=== PATIENT | female | born 1985 | race Caucasian/White ===

== ENCOUNTER 2016-11-26 14:55 | Emergency (ER) | payer MEDICAID ==
[~2016-11-26] VITALS: Ht 157.5 cm; Wt 53.6 kg
[2016-11-26] MEDS ORDERED: NORCO 325 MG-51 TA1 PO (16:51)
[2016-11-26 16:57] VITALS: BP 108/78
== END 2016-11-26 16:53 | disposition home or self-care (01) ==
LOC: ED 14:55
DX: S02.2XXA Fracture of nasal bones, initial encounter for closed fracture (principal); S00.83XA Contusion of other part of head, initial encounter; W50.0XXA Accidental hit or strike by another person, initial encounter; Y92.009 Unspecified place in unspecified non-institutional (private) residence as the place of occurrence of the external cause

== ENCOUNTER 2018-06-06 15:05 | Emergency (ER) | payer SELFPAY ==
[~2018-06-06] VITALS: Ht 157.5 cm; Wt 61.4 kg
[~2018-06-06 15:05] MED LIST: ALBUTEROL SULFAT3 M3 IH; CITALOPRAM HBR10 MG; GOOD NEIGHBOR200 M1 PO; IMITREX 25MG TA25 MG; IMITREX 25MG TA25 MG PO; NORCO 325 MG-51 TA1 PO; ZOFRAN ODT4 MG PO
[2018-06-06] MEDS ORDERED: ZITHROMAX 250M250 MG PO (16:48)
[2018-06-06 16:54] VITALS: BP 128/69
== END 2018-06-06 16:54 | disposition home or self-care (01) ==
LOC: ED 15:05
DX: J20.9 Acute bronchitis, unspecified (principal); Z88.2 Allergy status to sulfonamides; G43.909 Migraine, unspecified, not intractable, without status migrainosus; Z79.899 Other long term (current) drug therapy

== ENCOUNTER 2018-08-14 19:47 | Emergency (ER) | payer SELFPAY ==
[~2018-08-14] VITALS: Ht 157.5 cm; Wt 59.1 kg
[~2018-08-14 19:47] MED LIST changes: +ZITHROMAX 250M250 MG PO
[2018-08-14] MEDS ORDERED: PROAIR HFA0.09 MG/AC IH (20:27)
[2018-08-14 21:35] VITALS: BP 124/71
== END 2018-08-14 21:35 | disposition home or self-care (01) ==
LOC: ED 19:47
DX: G43.909 Migraine, unspecified, not intractable, without status migrainosus (principal); J45.909 Unspecified asthma, uncomplicated; F17.210 Nicotine dependence, cigarettes, uncomplicated; Z88.2 Allergy status to sulfonamides
CPT/HCPCS: J1200; J1885; J2550

== ENCOUNTER 2018-12-23 13:30 | Emergency (ER) | payer SELFPAY ==
[~2018-12-23] VITALS: Ht 157.5 cm; Wt 60.9 kg
[~2018-12-23 13:30] MED LIST changes: +ALBUTEROL2.5 MG/3 M IH; +PREDNISONE20 M1 PO; +PROAIR HFA0.09 MG/AC IH; +TOPAMAX25 MG PO; +ZOLOFT25 M1 PO
[2018-12-23] MEDS ORDERED: NEURONTIN300 M1 PO ×2 (15:35)
[2018-12-23] MEDS ORDERED: IMITREX 25MG TA25 MG PO (15:37)
[2018-12-23 17:30] VITALS: BP 105/62
== END 2018-12-23 17:24 | disposition home or self-care (01) ==
LOC: ED 13:30
DX: G43.909 Migraine, unspecified, not intractable, without status migrainosus (principal); F17.210 Nicotine dependence, cigarettes, uncomplicated; F12.90 Cannabis use, unspecified, uncomplicated; Z88.2 Allergy status to sulfonamides; Z87.01 Personal history of pneumonia (recurrent)
CPT/HCPCS: J1885; J2550

== ENCOUNTER 2019-07-23 19:37 | Emergency (ER) | payer MEDICAID ==
[~2019-07-23 19:37] MED LIST changes: +NEURONTIN300 M1 PO
[2019-07-23] MEDS ORDERED: NORCO 325 MG-51 TA1 PO (20:48)
[2019-07-23 21:08] VITALS: BP 122/70
== END 2019-07-23 21:08 | disposition home or self-care (01) ==
LOC: ED 19:37
DX: S06.0X0A Concussion without loss of consciousness, initial encounter (principal); S00.12XA Contusion of left eyelid and periocular area, initial encounter; F17.210 Nicotine dependence, cigarettes, uncomplicated; G43.909 Migraine, unspecified, not intractable, without status migrainosus; Y04.0XXA Assault by unarmed brawl or fight, initial encounter; Y92.009 Unspecified place in unspecified non-institutional (private) residence as the place of occurrence of the external cause

== ENCOUNTER 2019-08-25 21:52 | Emergency (ER) | payer MEDICAID ==
[~2019-08-25] VITALS: Ht 157.5 cm; Wt 63.6 kg
[2019-08-25] MEDS ORDERED: PROZAC20 M1 PO (22:04)
[2019-08-25] MEDS ORDERED: DESYREL50 MG PO (22:05)
[2019-08-25] MEDS ORDERED: XANAX0.5 M1 PO (22:06)
[2019-08-25] MEDS ORDERED: DEPO-PROVE150 MG/1 M IM (22:06)
[2019-08-25 23:08] VITALS: BP 119/53
== END 2019-08-25 23:08 | disposition home or self-care (01) ==
LOC: ED 21:52
DX: G43.909 Migraine, unspecified, not intractable, without status migrainosus (principal); F41.9 Anxiety disorder, unspecified; F32.9 Major depressive disorder, single episode, unspecified; F17.210 Nicotine dependence, cigarettes, uncomplicated
CPT/HCPCS: J1885; J2550

== ENCOUNTER 2019-10-15 16:17 | Emergency (ER) | payer MEDICAID ==
[~2019-10-15] VITALS: Ht 157.5 cm; Wt 70.2 kg
[~2019-10-15 16:17] MED LIST changes: +DEPO-PROVE150 MG/1 M IM; +DESYREL50 MG PO; +PROZAC20 M1 PO; +XANAX0.5 M1 PO
[2019-10-15 18:08] VITALS: BP 141/76
== END 2019-10-15 18:15 | disposition home or self-care (01) ==
LOC: ED 16:17
DX: R51 Headache (principal); F32.9 Major depressive disorder, single episode, unspecified; F17.210 Nicotine dependence, cigarettes, uncomplicated
CPT/HCPCS: J1885

== ENCOUNTER 2021-02-23 19:00 | Emergency (ER) | payer MEDICAID ==
[~2021-02-23] VITALS: Ht 157.5 cm; Wt 70.1 kg
[2021-02-23 19:06] VITALS: BP 122/72
== END 2021-02-23 21:17 | disposition home or self-care (01) ==
LOC: ED 19:00
DX: G43.909 Migraine, unspecified, not intractable, without status migrainosus (principal); F41.9 Anxiety disorder, unspecified; F32.9 Major depressive disorder, single episode, unspecified; F17.200 Nicotine dependence, unspecified, uncomplicated; Z79.899 Other long term (current) drug therapy
CPT/HCPCS: J1885; J2550

== ENCOUNTER 2021-06-11 17:17 | Emergency (ER) | payer MEDICAID ==
[2021-06-11 17:40] VITALS: BP 119/75
== END 2021-06-11 19:41 | disposition left against medical advice (07) ==
LOC: ED 17:17
DX: R51.9 Headache, unspecified (principal)

== ENCOUNTER 2021-07-17 18:32 | Emergency (ER) | payer MEDICAID ==
[2021-07-17] MEDS ORDERED: LAMOTRIGINE100 M3 PO (18:43)
[2021-07-17 21:15] VITALS: BP 121/63
== END 2021-07-17 21:15 | disposition home or self-care (01) ==
LOC: ED 18:32
DX: R05.1 Acute cough (principal)
CPT/HCPCS: J1885; J2550